=== PATIENT | female | born 1950 | race Caucasian/White ===

== ENCOUNTER 2018-11-11 12:19 | Emergency (ER) | payer OTHER, SELFPAY ==
--- NOTE | 2018-11-11 12:26 | DI.RAD.S_ITS ---
PROCEDURE: XR CHEST 1V INDICATIONS: chest pain TECHNIQUE: One view of the chest was acquired. COMPARISON: [facility], , CHEST 1 VIEW, 09/21/2017, 15:23. FINDINGS: Surgical changes and devices: None. Lungs and pleura: There is mild interstitial prominence. A 1.3 cm nodular density is noted in the left lower lung zone. No focal consolidation or pleural effusion. No pleural effusions or pneumothorax. Mediastinum: Mediastinal contours appear normal. Heart size is normal. Bones and chest wall: No suspicious bony lesions. Overlying soft tissues appear unremarkable. IMPRESSION: 1. No acute cardiopulmonary disease. 2. A 1.3 cm nodular density in the left lower lung zone. Recommend non-emergent followup chest CT for further evaluation. Dictated by: José Castillo M.D. on 11/11/2018 at 12:57 Approved by: José Castillo M.D. on 11/11/2018 at 13:03
[2018-11-11 12:28] VITALS: PULSE 84; RESP 18; TEMP 36.5; O2SAT 97; BMI 36.8
[2018-11-11 12:54] LABS: Add Manual Diff / Slide Review NO; Basophils Absolute Auto 0 /uL (0-100); Eosinophils Absolute Auto 300 /uL (0-450); Eosinophils Percent Auto 6.2 % (2-4); Hematocrit 42.3 % (36-46); Hemoglobin 14.1 g/dL (12.0-16.0); Lymphocytes Absolute Auto 1000 /uL (1100-4500); Lymphocytes Percent Auto 23.7 % (25-40); Mean Corpuscular HGB Conc 33.3 % (30-36); Monocytes Absolute Auto 400 /uL (0-900); Monocytes Percent Auto 10.1 % (3-14); Neutrophils Absolute Auto 2400 /uL (1500-7000); Platelet Count 141 X10^3/uL (150-400); Red Blood Cell Count 4.55 X10^6/uL (4.0-5.2); Red Cell Distribution Width 12.6 % (11.6-14.8); White Blood Cell Count 4.1 X10^3/uL (4.5-11.0)
[2018-11-11 13:00] VITALS: BP 183/97; PULSE 72; RESP 14; O2SAT 97
[2018-11-11 13:07] LABS: Alanine Aminotransferase 46 IU/L (9-52); Albumin 4.4 g/dL (3.5-5.0); Albumin Globulin Ratio 1.1 (1.0-2.8); Alkaline Phosphatase 76 U/L (38-126); Aspartate Aminotransferase 62 IU/L (14-36); BUN Creatinine Ratio 28.6 (6-22); Bilirubin Total 0.8 mg/dL (0.2-1.3); Blood Urea Nitrogen 20 mg/dL (7-17); Calcium 9.6 mg/dL (8.4-10.2); Carbon Dioxide 29 mmol/L (22-32); Chloride 101 mmol/L (98-107); Creatine Kinase 153 U/L (30-135); Estimated Glomerular Filt Rate > 60.0 mL/min (>60); Globulin 4.1 g/dL (1.7-4.1); Glucose 90 mg/dL (80-110); Lipase 118 U/L (23-300); Potassium 4.4 mmol/L (3.4-5.1); Sodium 137 mmol/L (137-145); Total Protein 8.5 g/dL (6.3-8.2)
[2018-11-11 13:19] LABS: Troponin I < 0.012 ng/mL (0.01-0.034)
[2018-11-11 13:22] LABS: CKMB % Relative Index 2.3 % (1.5-5.0); Creatine Kinase MB 3.51 ng/mL (<2.37); HEMOLYSIS 17 (0-50)
[2018-11-11 13:45] VITALS: BP 159/99; PULSE 70; RESP 14; O2SAT 100
--- NOTE | 2018-11-11 14:14 | ED.CHESTPAIN ---
HPI - Chest Pain General Chief Complaint: Chest Pain Stated Complaint: 'DISCOMBOBULATED INSIDE' SINCE OCT 26 Time Seen by Provider: 11/11/18 14:14 Source: patient Mode of arrival: ambulatory History of Present Illness HPI narrative: The patient feels like she strained her chest wall about 2 weeks ago. Since then she has had intermittent tightness across the upper chest. The symptoms lasted only briefly. She has had no cough or fever. She has peripheral edema, no history of CHF. She has no history of heart disease. The tightness does not change with cough or deep breathing. She denies orthopnea. However with the peripheral edema she has added 9 pounds over the past days. She was previously on diuretics, she does not currently use them. She has no calf tenderness. She has no hemoptysis. She reports frequent burping. The burps seem to alleviate the chest discomfort she is having. She has no history of hiatal hernia, gastritis or GERD. Related Data Home Medications Medication Instructions Recorded Confirmed fluorouracil 1 applic TOPICAL BID 11/11/18 11/11/18 furosemide 40 mg PO DAILY 11/11/18 Allergies Allergy/AdvReac Type Severity Reaction Status Date / Time No Known Drug Allergies Allergy Verified 11/11/18 12:28 Review of Systems Review of Systems ROS Unobtainable: All systems reviewed & are unremarkable except as noted in HPI and below Constitutional Denies chills, Denies fever(s), Denies lethargy and Denies weakness ENT Ears, Nose, Mouth, and Throat: Denies change in voice, Denies vertigo, Denies dizziness, Denies neck pain and Denies sore throat Cardiovascular Reports as per HPI, Reports chest pain, Denies irregular heart rhythm, Denies lightheadedness, Denies palpitations, Denies dyspnea and Denies orthopnea Respiratory Denies cough, Denies dyspnea and Denies wheezing Gastrointestinal Gastrointestinal: Denies abdominal pain, Denies change in bowel habits, Denies diarrhea, Denies nausea and Denies vomiting Musculoskeletal Denies back pain, Denies muscle cramps, Denies muscle weakness, Denies neck pain and Reports other (Bilateral lower extremity edema) Integumentary/Breasts Denies erythema and Denies rash Neurologic Denies vertigo, Denies dizziness and Denies weakness Psychiatric Denies anxiety and Denies depression Endocrine Denies palpitations Allergic/Immunologic Denies wheezing [facility] Medical History Dependent edema (Acute) Surgical History No pertinent past surgical history (Acute) Social History Smoking Status: Never smoker Social History Smoking Status: Never smoker Exam Initial Vital Signs Initial Vital Signs: Vital Signs Temperature 97.7 F 11/11/18 12:28 Pulse Rate 84 11/11/18 12:28 Respiratory Rate 18 11/11/18 12:28 Pulse Oximetry 97 11/11/18 12:28 Const General: cooperative and well developed Nutritional Appearance: well nourished Orientation: alert, awake and oriented x3 HENMT Mouth: oral mucosae normal Throat: posterior oropharynx normal, tonsils normal and uvula midline Neck Neck: normal visual inspection, trachea midline, No lymphadenopathy, No midline deformity and No JVD Lymphatic: No lymphadenopathy Chest Chest: normal inspection of the chest Resp Effort & Inspection: normal respiratory effort and able to speak in complete sentences Auscultation: clear to auscultation bilaterally, no rales, no rhonchi and no wheezes Cardio Rate: regular rate Rhythm: regular rhythm Heart Sounds: no click, no gallops, no murmurs and no rubs Pulses: normal peripheral pulses GI Inspection: non-distended Palpation: soft, no hepatosplenomegaly, No guarding, No pulsatile mass and No tender Auscultation: normal bowel sounds Back/Spine/Pelvis Cervical Spine: cervical ROM normal Thoracic/Lumbar Spine: thoracic and lumbar spine normal to inspection Skin General: no rashes or lesions noted Neuro General: alert, oriented x3, gait normal and no focal motor deficits Speech: speech normal Extrem General: full ROM, no pedal edema and no calf tenderness Psych Appearance: well kempt Mental Status: mental status grossly normal Attitude: cooperative Thought Content: normal and suicidality Judgment: judgment good Course Course Narrative: She has had quite a significant diuresis with the medications given. Evaluation reveals no evidence of CHF, or acute coronary system. She has no pulmonary issues. She does have peripheral edema. She appears to have a mild case of GERD. I will recommend OTC Maalox or Mylanta. She should follow up with her clinician in the very near future. Orders Ordered: ED Orders 11/11/18 12:26 XR chest 1V Stat EKG-12 Lead Stat 11/11/18 12:34 B Type Natriuretic Peptide Stat 11/11/18 12:35 Complete Blood Count AUTO DIFF Stat Comprehensive Metabolic Panel Stat Lipase Stat Troponin & CK Cardiac Panel Stat Sodium Chloride (Normal Saline 0.9%) 1,000 mls @ 150 mls/hr IV CONT JADEN Last Admin: 11/11/18 15:01 Dose: Not Given Discontinued Medications Aspirin (Aspirin Chew) 324 mg PO NOW ONE Stop: 11/11/18 12:27 Last Admin: 11/11/18 15:01 Dose: Not Given Furosemide (Lasix) 40 mg IV NOW ONE Stop: 11/11/18 14:38 Last Admin: 11/11/18 15:01 Dose: 40 mg Vital Signs - 8 hr 11/11/18 12:28 11/11/18 13:00 11/11/18 13:45 Temperature 97.7 F Pulse Rate 84 72 70 Respiratory Rate 18 14 14 Blood Pressure [Left Arm] 183/97 H 159/99 H Pulse Oximetry 97 97 100 11/11/18 15:17 11/11/18 16:19 Temperature Pulse Rate 63 68 Respiratory Rate 15 16 Blood Pressure [Left Arm] 154/81 H 148/72 H Pulse Oximetry 100 100 MDM - Chest Pain Lab Data Result diagrams: 11/11/18 12:35 11/11/18 12:35 Lab Results 11/11/18 11/11/18 11/11/18 Range/Units 12:34 12:35 12:35 WBC 4.1 L (4.5-11.0) X10^3/uL RBC 4.55 (4.0-5.2) X10^6/uL Hgb 14.1 (12.0-16.0) g/dL Hct 42.3 (36-46) % MCV 93.0 (80-100) fL MCH 31.0 (26-34) PG MCHC 33.3 (30-36) % RDW 12.6 (11.6-14.8) % Plt Count 141 L (150-400) X10^3/uL Neut % (Auto) 59.0 (50-75) % Lymph % (Auto) 23.7 L (25-40) % Cocke % (Auto) 10.1 (3-14) % Eos % (Auto) 6.2 H (2-4) % Baso % (Auto) 1.0 (0-2) % Neut # (Auto) 2400 (6634-4307) /uL Lymph # (Auto) 1000 L (6955-4930) /uL Cocke # (Auto) 400 (0-900) /uL Eos # (Auto) 300 (0-450) /uL Baso # (Auto) 0 (0-100) /uL Sodium 137 (137-145) mmol/L Potassium 4.4 (3.4-5.1) mmol/L Chloride 101 (98-107) mmol/L Carbon Dioxide 29 (22-32) mmol/L BUN 20 H (7-17) mg/dL Creatinine 0.70 (0.52-1.04) mg/dL Estimated GFR > 60.0 (>60) mL/min BUN/Creatinine Ratio 28.6 H (6-22) Glucose 90 (80-110) mg/dL Calcium 9.6 (8.4-10.2) mg/dL Total Bilirubin 0.8 (0.2-1.3) mg/dL AST 62 H (14-36) IU/L ALT 46 (9-52) IU/L Alkaline Phosphatase 76 (38-126) U/L Total Creatine Kinase 153 H (30-135) U/L CK-MB (CK-2) 3.51 H (<2.37) ng/mL CK-MB (CK-2) Rel Index 2.3 (1.5-5.0) % Troponin I < 0.012 (0.01-0.034) ng/mL B-Natriuretic Peptide 253 H (<100) Total Protein 8.5 H (6.3-8.2) g/dL Albumin 4.4 (3.5-5.0) g/dL Globulin 4.1 (1.7-4.1) g/dL Albumin/Globulin Ratio 1.1 (1.0-2.8) Lipase 118 (23-300) U/L Urine Dip Bedside Urine Glucose Negative Bedside Urine Bilirubin - Negative Bedside Urine Ketone - Negative Urine Specific [place] 1.010 Bedside Urine Occult Blood - Negative Bedside Urine pH 7.5 Bedside Urine Protein - Negative Bedside Urine Urobilinogen - Negative Bedside Urine Nitrite - Negative Bedside Urine Leukocytes - Negative Esterase Imaging Data Chest x-ray: Radiologist's impression: [address] [address] XRay Report Signed Patient: Chayito Hopson [facility]#: [id number] : [id number]:[id number] Age/Sex: 68 / FDate of Service: 11/11/18 Loc: ED Accession Number: [id number] Procedure: XR chest 1V Ordering Provider: Jarvis Uriarte M.D. PROCEDURE: XR CHEST 1V INDICATIONS: chest pain TECHNIQUE: One view of the chest was acquired. COMPARISON: [facility], CHEST 1 VIEW, 09/21/2017, 15:23. FINDINGS: Surgical changes and devices: None. Lungs and pleura: There is mild interstitial prominence. A 1.3 cm nodular density is noted in the left lower lung zone. No focal consolidation or pleural effusion. No pleural effusions or pneumothorax. Mediastinum: Mediastinal contours appear normal. Heart size is normal. Bones and chest wall: No suspicious bony lesions. Overlying soft tissues appear unremarkable. IMPRESSION: 1. No acute cardiopulmonary disease. 2. A 1.3 cm nodular density in the left lower lung zone. Recommend non-emergent followup chest CT for further evaluation. Dictated by: José Castillo M.D. on 11/11/2018 at 12:57 Approved by: José Castillo M.D. on 11/11/2018 at 13:03 ECG Data Attestation: I personally reviewed and interpreted this ECG as follows: (Normal sinus rhythm rate 64 bpm. PVCs. Left atrial enlargement. No ectopy. No acute ST T wave changes. Intervals are otherwise normal.) Discharge Plan Departure Patient Disposition: Home Clinical Impression: Dependent edema GERD (gastroesophageal reflux disease) Qualifiers: Esophagitis presence: without esophagitis Qualified Code(s): K21.9 - Gastro-esophageal reflux disease without esophagitis Instructions: DI for Gastroesophageal Reflux Disease (GERD) Activity Restrictions/Additional Instructions: Take Maalox or Mylanta, 2 tablespoons every 4-6 hours as needed for belching and chest discomfort. Return here if you have significant change in chest discomfort. Follow-up with her doctor about GERD and about the lower extremity swelling. Prescriptions: No Action furosemide 40 mg tablet 40 mg PO DAILY RF: 0 fluorouracil 5 % cream 1 applic topical BID RF: 0
[2018-11-11 14:43] LABS: B Type Natriuretic Peptide 253 (<100)
[2018-11-11] MEDS: FUROSEMIDE 40 MG/4 ML VIAL IV (15:01)
[2018-11-11 15:17] VITALS: BP 154/81; PULSE 63; RESP 15; O2SAT 100
[2018-11-11 16:19] VITALS: BP 148/72; PULSE 68; RESP 16; O2SAT 100
== END 2018-11-11 16:55 | disposition home or self-care (01) ==
PROVIDERS: Emergency Provider Emergency Medicine
DX: K21.9 Gastro-esophageal reflux disease without esophagitis (principal); R60.9 Edema, unspecified
CPT/HCPCS: 36415; 36591; 71045; 80053; 81003; 82550; 82553; 83690; 83880; 84484; 85025; 93005; 93010; 96374; 99284; 99285; J1940

== ENCOUNTER 2020-10-26 10:21 | Emergency (ER) | payer OTHER, SELFPAY ==
[2020-10-26] VITALS (16 sets, daily range): BP systolic 178–228; BP diastolic 73–106; PULSE 61–101; RESP 14–24; TEMP 36.4; O2SAT 96–100; BMI 37.9
--- NOTE | 2020-10-26 10:29 | DI.RAD.S_ITS ---
PROCEDURE: XR CHEST 1V INDICATIONS: chest pain TECHNIQUE: One view of the chest was acquired. COMPARISON: [facility], CR, XR CHEST 1V, 11/11/2018, 12:42. FINDINGS: Surgical changes and devices: None. Lungs and pleura: Small opacities in the right infrahilar region partially obscures the right cardiac margin. No pleural effusions or pneumothorax. Mediastinum: The aortic contour is stable. There is cephalization of the central vasculature and diffuse thickening of the interstitium, particularly in the lower lung zones. Heart size is normal. Bones and chest wall: No suspicious bony lesions. Overlying soft tissues appear unremarkable. IMPRESSION: 1. Cephalization of central vessels and interstitial thickening suggest CHF with interstitial edema. 2. Right infrahilar opacities may be atelectasis or early edema. Correlate with BNP. Dictated by: Kristen Garcia M.D. on 10/26/2020 at 9:58 Approved by: Kristen Garcia M.D. on 10/26/2020 at 10:01
[2020-10-26 11:07] LABS: Add Manual Diff / Slide Review NO; Basophils Absolute Auto 0 /uL (0-100); Eosinophils Absolute Auto 200 /uL (0-450); Eosinophils Percent Auto 5.9 % (2-4); Hematocrit 44.5 % (36-46); Hemoglobin 14.8 g/dL (12.0-16.0); Lymphocytes Absolute Auto 800 /uL (1100-4500); Lymphocytes Percent Auto 19.2 % (25-40); Mean Corpuscular HGB Conc 33.4 % (30-36); Mean Corpuscular Hemoglobin 31.2 PG (26-34); Mean Corpuscular Volume 93.5 fL (80-100); Monocytes Absolute Auto 400 /uL (0-900); Monocytes Percent Auto 9.8 % (3-14); Neutrophils Absolute Auto 2600 /uL (1500-7000); Neutrophils Percent Auto 64.1 % (50-75); Platelet Count 149 X10^3/uL (150-400); Red Blood Cell Count 4.76 X10^6/uL (4.0-5.2); Red Cell Distribution Width 12.6 % (11.6-14.8); White Blood Cell Count 4.1 X10^3/uL (4.5-11.0)
[2020-10-26 11:16] LABS: INR 1.1 (0.9-1.3); Prothrombin Time 12.6 SECONDS (10.1-12.7)
[2020-10-26 11:19] LABS: PTT Partial Thromboplastin Tim 28 SECONDS (26.4-36.2)
[2020-10-26 11:21] LABS: Alanine Aminotransferase 49 IU/L (<35); Albumin 4.4 g/dL (3.5-5.0); Albumin Globulin Ratio 1.1 (1.0-2.8); Alkaline Phosphatase 86 U/L (38-126); Aspartate Aminotransferase 62 IU/L (14-36); BUN Creatinine Ratio 21.3 (6-22); Bilirubin Total 1.1 mg/dL (0.2-1.3); Blood Urea Nitrogen 13 mg/dL (7-17); Calcium 10.2 mg/dL (8.4-10.2); Carbon Dioxide 33 mmol/L (22-32); Chloride 99 mmol/L (98-107); Creatine Kinase 121 U/L (30-135); Estimated Glomerular Filt Rate > 60.0 mL/min (>60); Globulin 3.9 g/dL (1.7-4.1); Glucose 100 mg/dL (80-110); HEMOLYSIS < 15 (0-50); Lipase 66 U/L (23-300); Potassium 3.9 mmol/L (3.4-5.1); Sodium 136 mmol/L (137-145); Total Protein 8.3 g/dL (6.3-8.2)
[2020-10-26 11:30] LABS: NT-proBNP (BNP-Adult 18+) 216 pg/mL (<125)
[2020-10-26 11:32] LABS: Troponin I < 0.012 ng/mL (0.01-0.034)
[2020-10-26 11:36] LABS: CKMB % Relative Index 3.2 % (1.5-5.0); Creatine Kinase MB 3.85 ng/mL (<2.37)
--- NOTE | 2020-10-26 12:19 | PC.NURSE ---
RN noticed that the patients blood pressure was 217/91. RN went in to check on the patient and she reports that she just got started on losartan 50mg last week and is due for her medication at 1300. provider notified and patient okayed to take her home medication of losartan 50mg. provider aware and no new orders at this time.
--- NOTE | 2020-10-26 13:03 | DI.US.S_ITS ---
PROCEDURE: US ABDOMEN LIMITED INDICATIONS: epigatric pain radiating to back , mildly elevated LFT TECHNIQUE: Real-time focused scanning was performed of the abdomen, with image documentation. COMPARISON: [facility], CR, XR CHEST 1V, 10/26/2020, 10:34. FINDINGS: The liver demonstrates mildly prominent size. The liver demonstrates generalized moderately increased echogenicity. This decreases ultrasound sensitivity for detection of hepatic masses. Multiple mobile gallstones are seen, which measure up to 1 cm The gallbladder wall is not thickened, measuring 3 mm or less. No specific pericholecystic fluid is seen. The sonographic Martínez sign is negative. There is no biliary dilatation, the common bile duct measures 3 mm. No significant pancreatic abnormality is seen on these images. IMPRESSION: Multiple mobile gallstones are seen, yet without additional sonographic signs of cholecystitis. Negative for biliary dilatation. Please correlate with physical examination findings, patient presentation, and laboratory values. Prominent, fatty liver. Dictated by: Kobi Kaur M.D. on 10/26/2020 at 13:11 Approved by: Kobi Kaur M.D. on 10/26/2020 at 13:12
[2020-10-26 13:36] LABS: Creatine Kinase 119 U/L (30-135)
[2020-10-26 13:48] LABS: Troponin I < 0.012 ng/mL (0.01-0.034)
[2020-10-26 13:51] LABS: CKMB % Relative Index 3.2 % (1.5-5.0); Creatine Kinase MB 3.83 ng/mL (<2.37)
[2020-10-26] MEDS: FUROSEMIDE 40 MG/4 ML VIAL 20 MG IV (14:21)
--- NOTE | 2020-10-26 18:44 | ED.CHESTPAIN ---
HPI - Chest Pain <ARINA Dale - Last Filed: 10/26/20 19:22> General Chief Complaint: Chest Pain Stated Complaint: sob/chest discomfort/thoracic back pain x14 days Time Seen by Provider: 10/26/20 11:27 Source: patient Mode of arrival: Ambulatory Limitations: no limitations History of Present Illness HPI narrative: This is a 70-year-old female, nonsmoker, who has past medical history significant for hypertension, GERD, polymyositis presents to ED with chief complain of fluttery, fizzy, giant burp sensation in epigastric region radiating to back and breathless symptoms with talking and bilateral lower extremity swelling for last two days. Patient associated her symptoms in epigastric discomfort with nausea after eating. Patient also reports right-sided toothache. Patient reports actually lost about 5 lb of weight recently with decreased appetite. She states she has been on remission for polymyositis and is concerned for this is recurring. Reports distal weakness in her bilateral lower legs as previous symptoms when she had polymyositis. She is not currently seeing parks recreation coordinator. Patient had full cardiac workup done in 2019 at [facility] which was unremarkable but is not currently seeing maintenance assistant. Patient had similar symptoms and was evaluated initially at [facility] walk-in clinic 5 days ago and was referred to [facility] ER for further workup. At that time elevated blood pressure was noted with negative cardiac workup. Patient states used to be on lisinopril not regularly for elevated blood pressure but stop taking this since notice facial swelling and concerned for angioedema for about a month ago. Patient also used to take hydrochlorothiazide, furosemide, potassium pills in the past but stopped these with unclear reasons. Patient states her blood pressure in ED was ranging from 180s to 220 SBP during last visit to [facility]. She was discharged to home with losartan to manage high blood pressure. She also started taking hydrochlorothiazide with elevated blood pressure and noticed improving lower leg swelling for last couple of days. Related Data Home Medications Medication Instructions Recorded Confirmed fluorouracil 1 applic TOPICAL BID 11/11/18 11/11/18 furosemide 40 mg PO DAILY 11/11/18 11/11/18 aspirin [Aspir-81] 81 mg PO DAILY 10/26/20 10/26/20 losartan 10/26/20 Allergies Allergy/AdvReac Type Severity Reaction Status Date / Time No Known Drug Allergies Allergy Verified 11/11/18 12:28 Review of Systems <ARINA Dale - Last Filed: 10/26/20 19:22> Review of Systems Narrative: General: Denies fever, chills, fatigue, malaise, sweats. HEENT: Denies sinus pain, ear pain, sore throat, difficulty swallowing, dizziness. Respiratory: See HPI Cardiovascular: See HPI Gastrointestinal: Denies (+) nausea, vomiting, abdominal pain, diarrhea, constipation, melena. : Denies dysuria, frequency, incontinence, hematuria, urinary retention. Musculoskeletal: Denies weakness, joint pain or bony pain. Skin: Denies rash, skin lesions, or other. Neurologic: Denies weakness, headache, numbness, change in speech, confusion, seizures, incoordination. Psychiatric: No concerning psychosocial issues. 12-point review of systems is negative except for those stated above. Patient History <ARINA Dale - Last Filed: 10/26/20 19:22> Medical History Dependent edema Polymyositis Surgical History No pertinent past surgical history Social History Smoking Status: Never smoker Smoking Status: Never smoker alcohol intake frequency: 0-2 drinks per day Substance Use Type: does not use Exam <ARINA Dale - Last Filed: 10/26/20 19:22> Narrative Exam Narrative: GEN: Alert, oriented x 3, well appearing and nourished, and in no acute distress. Head: Normal cephalic, atraumatic. No scalp or temporal tenderness, palpable mass or rash. EYES: Pupils are equal, round, and reactive to light and accommodation. Extraocular muscles are intact bilaterally. There is no subconjunctival hemorrhage, exudate and sclera non-icteric. ENT: Hearing grossly intact. Nose without bleeding, purulent discharge or deviation. Mucous membrane moist, no mucosal lesion. Throat without erythema, tonsillar hypertrophy or exudate. Uvula in midline, airway patent. Neck: Trachea in midline. No JVD, non-tender without lymphadenopathy. No masses or thyroid megaly. Supple, non-tender and no meningeal signs. CARDIAC: Normal regular rate and rhythm without murmurs, gallops, or rubs. No chest wall tenderness. +1 lower extremity edema. No cyanosis or pallor. Capillary refill is less than 2 seconds. RESPIRATORY: Lungs are clear to auscultate bilaterally. No cough, wheezes, rales, or rhonchi. No stridor, respiratory distress, increase work of breathing, or accessary muscle used. ABD: Abdomen soft, nontender and non-distended. No guarding or rebound tenderness to palpate. Bowel sounds are normal in all 4 quadrants. There is no palpable masses or organomegaly. EXT: Full painless ROM of all extremities with no loss of sensation, strength, effusion or edema. SKIN: Warm, dry, normal color for patient. No erythema, lesions or rash over visible areas. BACK: Nontender without deformity or crepitance. No flank tenderness. NEUROLOGICAL: Alert and oriented to place, time and person. Sensation and motor function intact bilaterally. No facial droops, dysphasia. PSYCHIATRIC: Good judgement and reason, without hallucinations, abnormal affect or abnormal behaviors during the examination. Patient is not suicidal. Initial Vital Signs Initial Vital Signs: Vital Signs Temperature 97.6 F 10/26/20 10:40 Pulse Rate 61 10/26/20 10:40 Respiratory Rate 16 10/26/20 10:40 Blood Pressure 185/96 H 10/26/20 10:40 Pulse Oximetry 99 10/26/20 10:40 <Meron Ibarra DO - Last Filed: 10/27/20 14:18> Initial Vital Signs Initial Vital Signs: Vital Signs Temperature 97.6 F 10/26/20 10:40 Pulse Rate 61 10/26/20 10:40 Respiratory Rate 16 10/26/20 10:40 Blood Pressure 185/96 H 10/26/20 10:40 Pulse Oximetry 99 10/26/20 10:40 Scores <ARINA Dale - Last Filed: 10/26/20 19:22> GCS Mesfin coma scale eye opening: Spontaneous Mesfin coma scale verbal response: Orientated Mesfin coma scale motor response: Obey commands [place] coma scale total score: 15 HEART Score Heart Score history: Slightly Suspicious Heart Score EKG: Normal Heart Score Age: > or = 65 years old Heart Score risk factors: 1-2 risk factors Heart Score troponin: < or = to normal limit Heart Score Total: 3 Course <ARINA Dale - Last Filed: 10/26/20 19:22> Orders Ordered: Discontinued Medications Furosemide (Furosemide 40 Mg/4 Ml Vial) 20 mg IV NOW ONE Stop: 10/26/20 14:15 Last Admin: 10/26/20 14:21 Dose: 20 mg Documented by: TONJAMEN Vital Signs Vital signs: Vital Signs - 8 hr 10/26/20 12:00 10/26/20 12:10 10/26/20 12:30 Pulse Rate 87 64 83 Respiratory Rate 20 20 23 Blood Pressure 217/91 H Pulse Oximetry 100 100 99 10/26/20 12:31 10/26/20 13:00 10/26/20 13:01 Pulse Rate 75 64 64 Respiratory Rate 21 14 15 Blood Pressure 215/84 H 204/87 H Pulse Oximetry 99 99 99 10/26/20 13:30 10/26/20 13:45 10/26/20 14:00 Pulse Rate 72 86 92 H Respiratory Rate 24 24 Blood Pressure 225/106 H Pulse Oximetry 99 96 98 10/26/20 14:01 10/26/20 14:03 10/26/20 14:30 Pulse Rate 101 H 74 80 Respiratory Rate 24 20 20 Blood Pressure 228/104 H 208/91 H Pulse Oximetry 99 99 99 10/26/20 14:31 10/26/20 15:00 10/26/20 15:01 Pulse Rate 76 66 Respiratory Rate 22 15 Blood Pressure 205/85 H 178/73 H Pulse Oximetry 98 99 <Meron Ibarra DO - Last Filed: 10/27/20 14:18> Orders Ordered: Discontinued Medications Furosemide (Furosemide 40 Mg/4 Ml Vial) 20 mg IV NOW ONE Stop: 10/26/20 14:15 Last Admin: 10/26/20 14:21 Dose: 20 mg Documented by: TONJAMEN Vital Signs Vital signs: Vital Signs - 8 hr 10/26/20 12:00 10/26/20 12:10 10/26/20 12:30 Pulse Rate 87 64 83 Respiratory Rate 20 20 23 Blood Pressure 217/91 H Pulse Oximetry 100 100 99 10/26/20 12:31 10/26/20 13:00 10/26/20 13:01 Pulse Rate 75 64 64 Respiratory Rate 21 14 15 Blood Pressure 215/84 H 204/87 H Pulse Oximetry 99 99 99 10/26/20 13:30 10/26/20 13:45 10/26/20 14:00 Pulse Rate 72 86 92 H Respiratory Rate 24 24 Blood Pressure 225/106 H Pulse Oximetry 99 96 98 10/26/20 14:01 10/26/20 14:03 10/26/20 14:30 Pulse Rate 101 H 74 80 Respiratory Rate 24 20 20 Blood Pressure 228/104 H 208/91 H Pulse Oximetry 99 99 99 10/26/20 14:31 10/26/20 15:00 10/26/20 15:01 Pulse Rate 76 66 Respiratory Rate 22 15 Blood Pressure 205/85 H 178/73 H Pulse Oximetry 98 99 MDM - Chest Pain <ARINA Dale - Last Filed: 10/26/20 19:22> Differential Diagnosis Differential diagnosis: Likely atypical chest pain and other (GERD, cholecystitis, hypertension, ACS) Medical Records Data Attestation: I reviewed the patient's medical records. Lab Data Attestation: I reviewed the patient's lab results. Result diagrams: 10/26/20 10:57 10/26/20 10:57 Labs: Lab Results 10/26/20 10/26/20 10/26/20 Range/Units 10:57 10:57 10:57 WBC 4.1 L (4.5-11.0) X10^3/uL RBC 4.76 (4.0-5.2) X10^6/uL Hgb 14.8 (12.0-16.0) g/dL Hct 44.5 (36-46) % MCV 93.5 (80-100) fL MCH 31.2 (26-34) PG MCHC 33.4 (30-36) % RDW 12.6 (11.6-14.8) % Plt Count 149 L (150-400) X10^3/uL Neut % (Auto) 64.1 (50-75) % Lymph % (Auto) 19.2 L (25-40) % Sunflower % (Auto) 9.8 (3-14) % Eos % (Auto) 5.9 H (2-4) % Baso % (Auto) 1.0 (0-2) % Neut # (Auto) 2600 (2198-9798) /uL Lymph # (Auto) 800 L (1954-4298) /uL Sunflower # (Auto) 400 (0-900) /uL Eos # (Auto) 200 (0-450) /uL Baso # (Auto) 0 (0-100) /uL PT 12.6 (10.1-12.7) SECONDS INR 1.1 (0.9-1.3) APTT 28 (26.4-36.2) SECONDS Sodium 136 L (137-145) mmol/L Potassium 3.9 (3.4-5.1) mmol/L Chloride 99 (98-107) mmol/L Carbon Dioxide 33 H (22-32) mmol/L BUN 13 (7-17) mg/dL Creatinine 0.61 (0.52-1.04) mg/dL Estimated GFR > 60.0 (>60) mL/min BUN/Creatinine Ratio 21.3 (6-22) Glucose 100 (80-110) mg/dL Calcium 10.2 (8.4-10.2) mg/dL Total Bilirubin 1.1 (0.2-1.3) mg/dL AST 62 H (14-36) IU/L ALT 49 H (<35) IU/L Alkaline Phosphatase 86 (38-126) U/L Total Creatine Kinase 121 (30-135) U/L CK-MB (CK-2) 3.85 H (<2.37) ng/mL CK-MB (CK-2) Rel Index 3.2 (1.5-5.0) % Troponin I < 0.012 (0.01-0.034) ng/mL NT-Pro-B Natriuret Pep (<125) pg/mL Total Protein 8.3 H (6.3-8.2) g/dL Albumin 4.4 (3.5-5.0) g/dL Globulin 3.9 (1.7-4.1) g/dL Albumin/Globulin Ratio 1.1 (1.0-2.8) Lipase 66 (23-300) U/L 10/26/20 10/26/20 Range/Units 10:57 13:19 WBC (4.5-11.0) X10^3/uL RBC (4.0-5.2) X10^6/uL Hgb (12.0-16.0) g/dL Hct (36-46) % MCV (80-100) fL MCH (26-34) PG MCHC (30-36) % RDW (11.6-14.8) % Plt Count (150-400) X10^3/uL Neut % (Auto) (50-75) % Lymph % (Auto) (25-40) % Sunflower % (Auto) (3-14) % Eos % (Auto) (2-4) % Baso % (Auto) (0-2) % Neut # (Auto) (5623-3477) /uL Lymph # (Auto) (5708-0855) /uL Sunflower # (Auto) (0-900) /uL Eos # (Auto) (0-450) /uL Baso # (Auto) (0-100) /uL PT (10.1-12.7) SECONDS INR (0.9-1.3) APTT (26.4-36.2) SECONDS Sodium (137-145) mmol/L Potassium (3.4-5.1) mmol/L Chloride (98-107) mmol/L Carbon Dioxide (22-32) mmol/L BUN (7-17) mg/dL Creatinine (0.52-1.04) mg/dL Estimated GFR (>60) mL/min BUN/Creatinine Ratio (6-22) Glucose (80-110) mg/dL Calcium (8.4-10.2) mg/dL Total Bilirubin (0.2-1.3) mg/dL AST (14-36) IU/L ALT (<35) IU/L Alkaline Phosphatase (38-126) U/L Total Creatine Kinase 119 (30-135) U/L CK-MB (CK-2) 3.83 H (<2.37) ng/mL CK-MB (CK-2) Rel Index 3.2 (1.5-5.0) % Troponin I < 0.012 (0.01-0.034) ng/mL NT-Pro-B Natriuret Pep 216 H (<125) pg/mL Total Protein (6.3-8.2) g/dL Albumin (3.5-5.0) g/dL Globulin (1.7-4.1) g/dL Albumin/Globulin Ratio (1.0-2.8) Lipase (23-300) U/L Urine Dip Bedside Urine Glucose Negative Bedside Urine Bilirubin - Negative Bedside Urine Ketone - Negative Urine Specific Murdock 1.010 Bedside Urine Occult Blood - Negative Bedside Urine pH 6.5 Bedside Urine Protein - Negative Bedside Urine Urobilinogen - Negative Bedside Urine Nitrite - Negative Bedside Urine Leukocytes - Negative Esterase Imaging Data Chest x-ray: Radiologist's Impression: [address] [id number] ReportSigned Patient: Chayito Hopson AMR#: [id number]: [id number]:[id number]/Sex: 70 / FDate of Service: 10/26/20Loc: EDAccession Number: [id number] Procedure: XR chest 1V Ordering Provider: Meron Ibarra D.O. PROCEDURE: XR CHEST 1V INDICATIONS: chest pain TECHNIQUE: One view of the chest was acquired. COMPARISON: [facility] , XR CHEST 1V, 11/11/2018, 12:42. FINDINGS: Surgical changes and devices: None. Lungs and pleura: Small opacities in the right infrahilar region partially obscures the right cardiac margin. No pleural effusions or pneumothorax. Mediastinum: The aortic contour is stable. There is cephalization of the central vasculature and diffuse thickening of the interstitium, particularly in the lower lung zones. Heart size is normal. Bones and chest wall: No suspicious bony lesions. Overlying soft tissues appear unremarkable. IMPRESSION: 1. Cephalization of central vessels and interstitial thickening suggest CHF with interstitial edema. 2. Right infrahilar opacities may be atelectasis or early edema. Correlate with BNP. Dictated by: Kristen Garcia M.D. on 10/26/2020 at 9:58 Approved by: Kristen Garcia M.D. on 10/26/2020 at 10:01 US - abdomen: Radiologist's Impression: [address] [id number] ReportSigned Patient: Chayito Hopson AMR#: [id number]: [id number]:[id number]/Sex: 70 / FDate of Service: 10/26/20Loc: EDAccession Number: [id number] Procedure: US abdomen limited Ordering Provider: Cornel Lopez PROCEDURE: US ABDOMEN LIMITED INDICATIONS: epigatric pain radiating to back , mildly elevated LFT TECHNIQUE: Real-time focused scanning was performed of the abdomen, with image documentation. COMPARISON: [facility], CR, XR CHEST 1V, 10/26/2020, 10:34. FINDINGS: The liver demonstrates mildly prominent size. The liver demonstrates generalized moderately increased echogenicity. This decreases ultrasound sensitivity for detection of hepatic masses. Multiple mobile gallstones are seen, which measure up to 1 cm The gallbladder wall is not thickened, measuring 3 mm or less. No specific pericholecystic fluid is seen. The sonographic Martínez sign is negative. There is no biliary dilatation, the common bile duct measures 3 mm. No significant pancreatic abnormality is seen on these images. IMPRESSION: Multiple mobile gallstones are seen, yet without additional sonographic signs of cholecystitis. Negative for biliary dilatation. Please correlate with physical examination findings, patient presentation, and laboratory values. Prominent, fatty liver. Dictated by: Kobi Kaur M.D. on 10/26/2020 at 13:11 Approved by: Kobi Kaur M.D. on 10/26/2020 at 13:12 ECG Data Attestation: I personally reviewed and interpreted this ECG as follows: Prior ECG tracings: available for review Interpretation: #1 EKG: Sinus rhythm with occasional PVC rate at 63. Left dominant 86. ID interval 160, QRS duration 86, QT/QTC 402/411. No acute ST changes. #2 EKG Sinus rhythm occasional PVC rate at 61. ID interval 170, QRS duration 80, QT/QTC 414/416. Left dominant axis No acute ST changes. Similar EKG from [facility] on 10/21/20. [facility] Narrative Medical decision making narrative: This is a 70 year female who has past medical history significant for GERD, polymyositis, intermittent high blood pressure presents to ED with chief complain of epigastric pain radiating to back, nausea associated with eating, some dyspnea. Patient was evaluated in [facility] 5 days ago with same symptoms and was discharged home with negative cardiac workup. [facility] record requested and reviewed. Physical exam was unremarkable. Two EKG shows occasional PVCs without acute ST changes rate at 60's. To cardiac enzymes were negative with normal CPK which patient requested to see whether polymyositis recurrence. Chest x-ray indication of CHF vs. Atelectasis or early edema. Pro BNP very mildly elevated to 216. Mildly elevated AST and ALT of 62 in 49 with normal alk phosphatase and lipase. Otherwise unremarkable chemistry and CBC. Normal coags. Patient was monitored closely for by elevated blood pressure in ED. she had taken her own losartan during ED stay and received 20 mg IV Lasix dose for mild dyspnea and lower extremity swelling. BP improved to 178/73 in ED. HEART score 3 (age, HTN). Given patient had epigastric discomfort radiating to back with nausea associated with food and mildly elevated liver function test, ultrasound of abdomen obtained which indicated gallstone without acute cholecystitis. It is unclear for etiology of patient's symptoms. It is assured that patient had recent for cardiac workup with stress test and echo in 2018 without acute findings. Patient had 2 workups done in [facility] today and [facility] with negative cardiac workup. Patient's symptoms may due to gallstone, GERD, hypertension, PVCs, mild heart failure. Patient's symptoms were persistent and recur, further cardiac workup out patiently warrants. Patient advised to take additional 20 mg Lasix for over 2 days with potassium supplement and to continue with her current medications. Patient advised to monitor her blood pressure and tract this before following up with primary care physician. Strict return precautions discussed with patient and she verbalized understanding in agreement with the treatment plan. Patient provided with [facility] contact number if her symptoms associated with eating to further evaluation for gallstone. Patient verbalized understanding and agreement with the treatment plan. CK results provided to patient and to follow-up and establish care with parks recreation coordinator. <Meron Ibarra, DO - Last Filed: 10/27/20 14:18> Lab Data Attestation: I reviewed the patient's lab results. Labs: Lab Results 10/26/20 10/26/20 10/26/20 Range/Units 10:57 10:57 10:57 WBC 4.1 L (4.5-11.0) X10^3/uL RBC 4.76 (4.0-5.2) X10^6/uL Hgb 14.8 (12.0-16.0) g/dL Hct 44.5 (36-46) % MCV 93.5 (80-100) fL MCH 31.2 (26-34) PG MCHC 33.4 (30-36) % RDW 12.6 (11.6-14.8) % Plt Count 149 L (150-400) X10^3/uL Neut % (Auto) 64.1 (50-75) % Lymph % (Auto) 19.2 L (25-40) % Sunflower % (Auto) 9.8 (3-14) % Eos % (Auto) 5.9 H (2-4) % Baso % (Auto) 1.0 (0-2) % Neut # (Auto) 2600 (1374-0527) /uL Lymph # (Auto) 800 L (7060-5383) /uL Sunflower # (Auto) 400 (0-900) /uL Eos # (Auto) 200 (0-450) /uL Baso # (Auto) 0 (0-100) /uL PT 12.6 (10.1-12.7) SECONDS INR 1.1 (0.9-1.3) APTT 28 (26.4-36.2) SECONDS Sodium 136 L (137-145) mmol/L Potassium 3.9 (3.4-5.1) mmol/L Chloride 99 (98-107) mmol/L Carbon Dioxide 33 H (22-32) mmol/L BUN 13 (7-17) mg/dL Creatinine 0.61 (0.52-1.04) mg/dL Estimated GFR > 60.0 (>60) mL/min BUN/Creatinine Ratio 21.3 (6-22) Glucose 100 (80-110) mg/dL Calcium 10.2 (8.4-10.2) mg/dL Total Bilirubin 1.1 (0.2-1.3) mg/dL AST 62 H (14-36) IU/L ALT 49 H (<35) IU/L Alkaline Phosphatase 86 (38-126) U/L Total Creatine Kinase 121 (30-135) U/L CK-MB (CK-2) 3.85 H (<2.37) ng/mL CK-MB (CK-2) Rel Index 3.2 (1.5-5.0) % Troponin I < 0.012 (0.01-0.034) ng/mL NT-Pro-B Natriuret Pep (<125) pg/mL Total Protein 8.3 H (6.3-8.2) g/dL Albumin 4.4 (3.5-5.0) g/dL Globulin 3.9 (1.7-4.1) g/dL Albumin/Globulin Ratio 1.1 (1.0-2.8) Lipase 66 (23-300) U/L 10/26/20 10/26/20 Range/Units 10:57 13:19 WBC (4.5-11.0) X10^3/uL RBC (4.0-5.2) X10^6/uL Hgb (12.0-16.0) g/dL Hct (36-46) % MCV (80-100) fL MCH (26-34) PG MCHC (30-36) % RDW (11.6-14.8) % Plt Count (150-400) X10^3/uL Neut % (Auto) (50-75) % Lymph % (Auto) (25-40) % Sunflower % (Auto) (3-14) % Eos % (Auto) (2-4) % Baso % (Auto) (0-2) % Neut # (Auto) (6017-5599) /uL Lymph # (Auto) (3708-6178) /uL Sunflower # (Auto) (0-900) /uL Eos # (Auto) (0-450) /uL Baso # (Auto) (0-100) /uL PT (10.1-12.7) SECONDS INR (0.9-1.3) APTT (26.4-36.2) SECONDS Sodium (137-145) mmol/L Potassium (3.4-5.1) mmol/L Chloride (98-107) mmol/L Carbon Dioxide (22-32) mmol/L BUN (7-17) mg/dL Creatinine (0.52-1.04) mg/dL Estimated GFR (>60) mL/min BUN/Creatinine Ratio (6-22) Glucose (80-110) mg/dL Calcium (8.4-10.2) mg/dL Total Bilirubin (0.2-1.3) mg/dL AST (14-36) IU/L ALT (<35) IU/L Alkaline Phosphatase (38-126) U/L Total Creatine Kinase 119 (30-135) U/L CK-MB (CK-2) 3.83 H (<2.37) ng/mL CK-MB (CK-2) Rel Index 3.2 (1.5-5.0) % Troponin I < 0.012 (0.01-0.034) ng/mL NT-Pro-B Natriuret Pep 216 H (<125) pg/mL Total Protein (6.3-8.2) g/dL Albumin (3.5-5.0) g/dL Globulin (1.7-4.1) g/dL Albumin/Globulin Ratio (1.0-2.8) Lipase (23-300) U/L Urine Dip Bedside Urine Glucose Negative Bedside Urine Bilirubin - Negative Bedside Urine Ketone - Negative Urine Specific Murdock 1.010 Bedside Urine Occult Blood - Negative Bedside Urine pH 6.5 Bedside Urine Protein - Negative Bedside Urine Urobilinogen - Negative Bedside Urine Nitrite - Negative Bedside Urine Leukocytes - Negative Esterase ECG Data Attestation: I personally reviewed and interpreted this ECG as follows: Prior ECG tracings: available for review Interpretation: Occasional PVCs, left atrial enlargement no significant change from prior tracing. Sixty-three P are 160 QRS 86 and QTC of 411. Patient does not appear to have any new ST segment changes. Similar to prior. EKG 2. Shows sinus rhythm occasional PVC left atrial enlargement. Patient's EKG appears similar to prior from today. Rate is 61 P are 170 QRS 88 QTC is 416. Discharge Plan Departure Patient Disposition: Home Clinical Impression: Atypical chest pain Gallstone Qualifiers: Cholecystitis presence: without cholecystitis Biliary obstruction: without biliary obstruction Qualified Code(s): K80.20 - Calculus of gallbladder without cholecystitis without obstruction Hypertension Qualifiers: Hypertension type: essential hypertension Qualified Code(s): I10 - Essential (primary) hypertension Instructions: Essential Hypertension, DI for Gallstones, DI for Atypical Chest Pain Activity Restrictions/Additional Instructions: You have been diagnosed with [atypical chest pain, hypertension, gallstone. EKG unremarkable. Labs unremarkable. #1 CPK 121 and #2 119 (norm range 20-135). To cardiacs enzymes were negative. Very mildly elevated proBNP of 216. Chest x-ray indicates Possible CHF. Abdominal ultrasound shows gallstones without acute cholecystitis without biliary dilatation. ]. What to do: *Take your medications as directed. Take Lasix 20 mg with potassium 10-20 meq with this for next 2 days. Please monitor your blood pressure at the same time about twice a day for next 1-2 weeks. Please log your blood pressure for next appointment. Please avoid fatty food, spicy food. *Follow up with your primary care provider in 2-3 days, call for an appointment. Let them know you were seen in the ED and that we asked you to be seen in follow up. *Return to ED if you have any new, worsening, or concerning symptoms, such as [worsening or different chest pain, breathing difficulty, unable to tolerate fluids, fever, lightheadedness, or any acute concerns]. Prescriptions: No Action furosemide 40 mg tablet 40 mg PO DAILY RF: 0 fluorouracil 5 % cream 1 applic topical BID RF: 0 losartan 50 mg tablet RF: 0 aspirin [Aspir-81] 81 mg Tablet,Delayed Release (Dr/Ec) 81 mg PO DAILY RF: 0 Referrals: [facility] [Provider Group] Shanthi Riley PA-C [Primary Care Provider] - <Meron Ibarra DO - Last Filed: 10/27/20 14:18> Cosign ED Attending Cossofyaature Attestation: I was immediately available in the department for consultation. Documentation has been reviewed. Patient has complaint of epigastric pain radiating to back with nausea and some dyspnea. Patient had cardiac workup which was -5 days ago. Patient does not have acute EKG changes, case was discussed with myself. Agree with current plan.
== END 2020-10-26 15:33 | disposition home or self-care (01) ==
PROVIDERS: Emergency Medicine; Emergency Provider Nurse Practitioner Family; PCP Physician Assistant Medical
DX: R07.89 Other chest pain (principal); K80.20 Calculus of gallbladder without cholecystitis without obstruction; R79.89 Other specified abnormal findings of blood chemistry; R11.0 Nausea; R10.13 Epigastric pain; R06.02 Shortness of breath; R60.0 Localized edema; I10 Essential (primary) hypertension; R06.00 Dyspnea, unspecified
CPT/HCPCS: 36415; 71045; 76705; 80053; 81003; 82550; 82553; 83690; 83880; 84484; 85025; 85610; 85730; 93005; 93010; 96374; 99284; J1940

== ENCOUNTER → 2022-09-19 10:28 | Outpatient (CLI) | payer OTHER, SELFPAY ==
[2022-09-19 11:18] LABS: COVID19 -Nasal RAPID Negative (Negative)
== END ==
PROVIDERS: PCP Physician Assistant Medical; Visit Provider Surgery
DX: Z01.812 Encounter for preprocedural laboratory examination (principal); Z20.822 Contact with and (suspected) exposure to COVID-19
CPT/HCPCS: 87635

== ENCOUNTER 2022-09-19 10:31 | Day surgery (SDC) | payer OTHER, SELFPAY ==
[2022-09-19 10:59] VITALS: BP 178/89; PULSE 76; RESP 16; TEMP 36.8; O2SAT 99; BMI 32.3
[2022-09-19] MEDS: LACTATED RINGERS 1,000 ML 200 ML IV (11:12)
--- NOTE | 2022-09-19 11:26 | PM.HP.1 ---
History of Present Illness History of Present Illness Date Patient Seen: 09/19/22 Time Patient Seen: 11:27 Chief complaint: SDC Narrative: The patient presents for colorectal screening. Colonoscopy 10 years ago normal. Brother has history of colon cancer. On further history denies any recent gastrointestinal symptoms. No nausea, vomiting, abdominal pain, loss of appetite, unexplained weight loss, change in bowel habits, or blood per rectum. Patient History Medical History Dependent edema GERD (gastroesophageal reflux disease) Hypertension Interstitial lung disease Polymyositis Postherpetic neuralgia Skin cancer Surgical History No pertinent past surgical history Family & Social History Family History Father Hypertension Brother Stroke Colon cancer Sister Cancer Social History: household members spouse Tobacco & Substance use: Smoking Status Never smoker alcohol intake current alcohol intake frequency a few times a month Substance Use Type does not use Meds Home Medications and Allergies Home Medications Medication Instructions Recorded Confirmed Type fluorouracil 5 % topical cream 1 applic topical BID 11/11/18 09/19/22 History hydrochlorothiazide 25 mg tablet 25 mg PO DAILY 12/01/20 09/19/22 History furosemide 40 mg tablet 20 mg PO DAILY 08/01/22 09/19/22 History gabapentin 300 mg capsule 300 mg PO DAILY PRN Pain (Scale 08/01/22 09/19/22 History Score 1-3) oxyquinoline 0.025 %-sodium lauryl 1 ea vaginal .weekly #113.4 grams 08/01/22 09/19/22 Rx sulfate 0.01 % vaginal gel Allergies Allergy/AdvReac Type Severity Reaction Status Date / Time lisinopril AdvReac Mild Rash Verified 09/19/22 10:56 sulfamethoxazole AdvReac Mild Rash Verified 09/19/22 10:56 [From Bactrim] trimethoprim [From Bactrim] AdvReac Mild Rash Verified 09/19/22 10:56 Exam Vital Signs (past 8 hours): - 09/19/22 10:59 Temperature 98.2 F Pulse Rate 76 Respiratory Rate 16 Blood Pressure 178/89 H Pulse Oximetry 99 Oxygen Delivery Method Room Air Oxygen Delivery Method Room Air Narrative Exam Narrative: General adult woman alert oriented no acute distress Abdomen soft nontender nondistended Assessment & Plan Assessment & Plan narrative: The patient requires colorectal screening and colonoscopy is recommended. Technical details were discussed. Risks, benefits, alternatives explained. Risks including but not limited to myocardial infarction, aspiration, bleeding, pain, missed lesion, incomplete examination, need for further radiographic studies, colonic perforation, and need for major abdominal surgery were discussed. All questions were answered to their satisfaction, and they are in agreement with this plan. Time Spent With Patient Critical Care time: I spent a total of [] minutes of critical care time on this patient's care today; this time is exclusive of procedural time.
--- NOTE | 2022-09-19 11:29 | PM.OP.COLON ---
Operative Date/Time/Diagnoses Date of procedure: 09/19/22 Time of procedure: 11:29 Pre-op diagnosis: Colorectal screening Family history of colon cancer Post-op diagnosis: same Procedure & Clinicians Study performed: Colonoscopy Same procedure as scheduled: Yes Indications: Colorectal screening, first-degree family member with colon cancer Surgeon: Matt Rayo Procedure Notes Procedure in detail: The history and physical was performed/updated and the patient is ASA class is 2. The procedure was discussed in detail with the patient. Potential risks complications including infection, bleeding, missed diagnosis, perforation, need for surgery, and were explained. Their questions were answered and informed consent was obtained. Patient was brought to the procedure room and placed standard monitoring equipment. The patient's vital signs were monitored continuously throughout the entire procedure. Prior to starting time-out was performed. The patient was placed in the left lateral recumbent position. Procedural sedation was administered by anesthesia. Examination began with a thorough inspection of the perianal area there was no evidence of fissures, fistulae, external hemorrhoids or cutaneous malignancy. The colonoscopy scope was then placed into the anal canal and was advanced to the cecum, which was identified by the ileocecal valve, the appendiceal orifice and the confluence of the taenia. The scope was then slowly withdrawn examining colon thoroughly in all directions, irrigating it of any residual stool. FINDINGS 1. No masses polyps or inflammation 2. Sigmoid-moderate diverticulosis 3. Internal hemorrhoids The patient tolerated the procedure well. They will be discharged once criteria are met. The prep was of good/excellent quality. The withdrawl time was 6 minutes. Specimen(s): none sent Impression: Normal colonoscopy Post-procedure Recommendations: Colonoscopy in 5 years and High fiber diet Disposition: same day surgery
[2022-09-19 12:01] VITALS: BP 121/72; PULSE 63; RESP 18; TEMP 36.6; O2SAT 100
[2022-09-19 12:06] VITALS: BP 139/75; PULSE 57; RESP 17; O2SAT 100
[2022-09-19 12:10] VITALS: BP 142/79; PULSE 62; RESP 19; O2SAT 98
[2022-09-19 12:18] VITALS: BP 156/79; PULSE 64; RESP 23; TEMP 36.3; O2SAT 98
[2022-09-19 12:21] VITALS: BP 164/73; PULSE 74; RESP 18; TEMP 36.2; O2SAT 98
== END 2022-09-19 13:00 | disposition home or self-care (01) ==
PROVIDERS: PCP Physician Assistant Medical; Referring Provider Surgery; Visit Provider Surgery
PROC: 0DJD8ZZ Inspection of Lower Intestinal Tract, Via Natural or Artificial Opening Endoscopic (ICD-10-PCS; CPT 45378; principal; 2022-09-19 11:45)
DX: Z12.11 Encounter for screening for malignant neoplasm of colon (principal); Z20.822 Contact with and (suspected) exposure to COVID-19; K57.30 Diverticulosis of large intestine without perforation or abscess without bleeding; K64.8 Other hemorrhoids
CPT/HCPCS: 45378; 87635; C9803; J2704

== ENCOUNTER → 2024-03-19 09:54 | Outpatient (CLI) | payer OTHER, SELFPAY ==
--- NOTE | 2024-03-19 09:56 | DI.NM.S_ITS ---
PROCEDURE: NM ODALIS PERF SPECT R&S PHARM Rest and pharmacological stress myocardial perfusion SPECT with gated imaging and ejection fraction RADIOPHARMACEUTICAL: 12.6 mCi Tc-99m tetrafosmin IV at rest and 26.3 mCi Tc-99m tetrafosmin IV at peak effect of pharmacological stress. [id number] was performed. INDICATIONS: Chest pain, unspecified PQRS ATTESTATIONS: Measure 322 - Is this imaging test primarily performed on a low-risk surgery patient for preoperative evaluation within 30 days preceding their low-risk non-cardiac surgery? Low-risk surgery is defined as cardiac or myocardial infarction less than 1%, including (but not limited to) endoscopic procedures, superficial procedures, cataract surgery, and excisional breast surgery: Answer: No Measure 323 - Is this imaging test performed primarily for the monitoring of an asymptomatic patient who had percutaneous coronary intervention on the visit date or within 2 years of the visit date? Answer: No Measure 324 - Is this imaging test performed primarily for the initial detection and risk assessment on an asymptomatic, low coronary heart disease patient? Low CHD risk definition = clinicians should consider the maximum number of available patient factors used to estimate risk based on [place] (ATP III criteria), typically age, gender, diabetes, smoking status, and use of blood pressure medication, and integrate age appropriate estimates for missing elements, such as LDL or standard blood pressure. Answer: No TECHNIQUE: Radiopharmaceutical was injected at peak stress test, and also at rest. SPECT images were obtained. SPECT myocardial perfusion images were displayed in short axis, horizontal long axis, and vertical long axis views. Gated images were reviewed using [employer] software. COMPARISON: None. CARDIAC STRESS: A pharmacologic stress test was performed under the supervision of an attending staff, using an infusion of 0.4 mg of Lexiscan. Hemodynamic data: There is normal blood pressure and heart rate response to pharmacologic stress. Symptoms: The patient denied anginal chest pain. Aminophylline: Was not administered EKG: No diagnostic changes of ischemia; no ectopy. Brief sinus pause noted during Lexiscan infusion. FINDINGS: Raw data: There is good myocardial uptake of radiotracer. No significant motion artifacts. Milj-aq-[id number] ratio is 0.25 (normal is less than 0.38 for tetrafosmin tracer). Left ventricle function: Gated images demonstrate normal left ventricular wall thickening. No segmental wall motion abnormalities. No transient ischemic dilation; TID is 0.89 (normal less than 1.3). Left ventricle resting end diastolic volume is 99 mL. Left ventricle stress ejection fraction is 105; normal range is above 45%. Myocardial perfusion: There was moderate hypoperfusion noted in the mid segment of the anterior wall and the rest images. However, this perfusion defect was not noted in the stress images. There was a small area of slight hypoperfusion in the inferoapical segment in both the stress and prone images. IMPRESSION: 1. Small area of mild inferior apical ischemia. 2. No infarction noted. 3. Low risk myocardial perfusion scan due to small amount of perfusion defect. Dictated by: Kartik Lowery M.D. on 03/20/2024 at 16:57 Approved by: Kartik Lowery M.D. on 03/20/2024 at 17:03
--- NOTE | 2024-03-19 09:57 | DI.ECHO.S_ITS ---
[place]+ [facility] : : [address] : : [place] : : [id number] : : Phone: [phone] Echocardiogram Report + + :Name: PJ RENDON Study Date: 03/19/2024 Height: 66 in : :[facility] ReadingLocation: Weight: 200 lb : : Gender: Female BSA: 2.0 m2 : :: 1950 Age: 73 yrs BP: 161/88 mmHg: :Reason For Study: CHEST PAIN : :Ordering Physician: GIANFRANCO, : :AMILCAR Performed By: Shelby Stanford : :Referring: AMILCAR MEDEL : + + Interpretation Summary The left ventricle is normal in size and wall thickness. The left ventricular ejection fraction is normal. The ejection fraction is estimated to be 60-65%. The right ventricle is normal in size and function. There is mild mitral regurgitation. There is mild aortic regurgitation. There is mild tricuspid regurgitation. The IVC is dilated (diameter is greater than 2.1 cm) yet it collapses greater than 50% with a sniff. This suggests a right atrial pressure of 8 mm Hg. BP: 161/88 mmHg Procedure: A two-dimensional transthoracic echocardiogram with color flow and Doppler was performed. The study quality was technically adequate. There is no prior echocardiogram noted for this patient. The patient was in sinus rhythm with heart rates between 57-65 bpm during the exam. Left Ventricle: The left ventricle is normal in size and wall thickness. There is no thrombus. The ejection fraction is estimated to be 60-65%. The left ventricular ejection fraction is normal. There are no focal wall motion abnormalities. MV E/A: 1.0 Med Peak E' Amilcar: 6.9 cm/sec E/E' med: 11.5. No significant diastolic dysfunction. Right Ventricle: The right ventricle is normal in size and function. Atria: The left atrial size is normal. Right atrial size is normal. A patent foramen ovale is suspected. Mitral Valve: There is mild mitral annular calcification. There is mild mitral regurgitation. Aortic Valve: The aortic valve is trileaflet. The aortic valve opens well. There is mild aortic valve sclerosis. There is no aortic valve stenosis. There is mild aortic regurgitation. Tricuspid Valve: The tricuspid valve is normal in structure and function. There is mild tricuspid regurgitation. Pulmonary artery pressures cannot be estimated because of the lack of a measurable TR jet velocity. Pulmonic Valve: The pulmonic valve leaflets are thin and pliable; valve motion is normal. There is trace pulmonic regurgitation. Great Vessels: The aortic root is normal size. The dimensions of the ascending aorta are normal. The IVC is dilated (diameter is greater than 2.1 cm) yet it collapses greater than 50% with a sniff. This suggests a right atrial pressure of 8 mm Hg. Pericardium/ Pleura There is no pericardial effusion. There is no pleural effusion. MMode/2D Measurements & Calculations LVIDd: 4.5 cm LVOT diam: 2.0 cm LVIDs: 2.7 cm Ao root diam: 3.0 cm FS: 38.5 % asc Aorta Diam: 3.4 cm IVSd: 0.79 cm Ao Arch Diam (Prox Trans): 2.5 cm LVPWd: 0.99 cm LV soliz. diameter/BSA (cm/m^2): 2.2 LV sys. diameter/BSA (cm/m^2): 1.4 LA A2 area: 19.8 cm2 RA long axis: 4.7 cm LA A4 area: 19.6 cm2 RA area: 15.3 cm2 LA length (vol): 5.4 cm RA vol: 42.6 ml LA vol: 60.3 ml RA : 21.3 ml/m2 LA vol index: 30.1 ml/m2 IVC diam: 2.1 cm RVD1 (basal): 3.6 cm TAPSE: 2.2 cm Doppler Measurements & Calculations Ao V2 max: 143.8 cm/sec LVOT Max Amilcar: 112.4 cm/sec Ao V2 mean: 94.5 cm/sec LV V1 max P.1 mmHg Ao max P.3 mmHg LV V1 VTI: 26.7 cm Ao mean P.2 mmHg ERIS(I,D): 2.5 cm2 Ao V2 VTI: 32.4 cm ERIS(V,D): 2.4 cm2 sev ratio: 0.82 ERIS indexed to BSA (cm^2/m^2): 1.3 MV E max amilcar: 79.9 cm/sec SV(LVOT): 82.2 ml MV A max amilcar: 78.7 cm/sec MV E/A: 1.0 Med Peak E' Amilcar: 6.9 cm/sec E/E' med: 11.5 Lat Peak E' Amilcar: 7.6 cm/sec E/E' lat: 10.5 E/e' average: 11.0 MV dec time: 0.21 sec Reading Physician:12:18 PM
== END ==
LOC: NUCM 09:55
PROVIDERS: PCP Physician Assistant Medical; Referring Provider Physician Assistant Medical; Visit Provider Physician Assistant Medical
DX: R07.9 Chest pain, unspecified (principal); I08.3 Combined rheumatic disorders of mitral, aortic and tricuspid valves
CPT/HCPCS: 78452; 93017; 93306; A9502; J2785